=== PATIENT | female | born 1930 | race Caucasian/White ===

== ENCOUNTER 2021-10-05 09:49 | Outpatient (CLI) | payer MEDICARE ==
[2021-10-05] VITALS (8 sets, daily range): BP systolic 133–154; BP diastolic 60–76; PULSE 69–87; TEMP 97.5
[~2021-10-05] VITALS: Ht 162.6 cm; Wt 62.7 kg
[~2021-10-05 09:49] MED LIST: ADVIL 200MG TA200 MG PO; ASMANEX TW0.22 MG/A1 IH; ASPIR-LOW81 MG PO; ASPIRIN E.C. 8181 MG PO; CALTRATE-600 W600 MG PO; CENTRUM SILVER1 TA1 PO; DRAMAMINE 50MG50 MG PO; EVISTA; EVISTA60 MG PO; FISH OIL CONC1000 MG PO; GENTEALSEVERE OP; LEVAQUIN 250MG250 MG PO; LEXAPRO 10MG10 MG PO; NORCO 325 MG-51 TAB PO; OCUVITE PO; OMEGA 31000 MG PO; PHENERGAN W/CO120 ML PO; PRILOSEC 20MG20 MG PO; SYNTHROID0.112 MG/T PO; TYLENOL 8 HR PO; VENTOLIN0.09 MG IH; XANAX 0.5MG0.5 MG PO; ZITHROMAX 250M250 MG PO; [UNRECOGNIZED DRUG - OTHER] PO
[2021-10-05] MEDS ORDERED: MOTRIN 200200 MG/TAB PO (10:55)
[2021-10-05] MEDS ORDERED: FOSAMAX 70MG TA70 MG PO (11:03)
[2021-10-05] MEDS ORDERED: COZAAR 25MG25 MG/TAB PO (11:04)
[2021-10-05] MEDS ORDERED: NORVASC2.5 MG PO (11:04)
--- NOTE | 2021-10-05 11:38 | NUR ---
See merge for all medication, assessment, intervention, and vital sign times. Moderate sedation assessment completed while in express unit.
--- NOTE | 2021-10-05 13:00 | NUR ---
PT BACK FROM SALES INTERN. PT RESTING COMFORTABLY, CMS INTACT TO LOWER EXTREMITIES. PUNCTURE SITES TO BACK COVERERD WITH CLEAN DRY AND INTACT BANDAIDS. DAUGHTER AT BS. VSS. WCTM . CALL LIGHT IN REACH
--- NOTE | 2021-10-05 15:30 | NUR ---
Discharge instructions given to pt.Pt verbalizes understanding.Pt escorted out via wheelchair by is nurse.
== END 2021-10-05 15:51 ==
LOC: COL.CAR 09:49
DX: S22.080K Wedge compression fracture of T11-T12 vertebra, subsequent encounter for fracture with nonunion (principal); M81.0 Age-related osteoporosis without current pathological fracture; M54.9 Dorsalgia, unspecified; F32.4 Major depressive disorder, single episode, in partial remission; W19.XXXD Unspecified fall, subsequent encounter; Z87.891 Personal history of nicotine dependence
CPT/HCPCS: C1713; J2250; J3010